=== PATIENT | male | born 1930 | race Caucasian/White ===

== ENCOUNTER → 2018-07-26 | Outpatient (CLI) | payer OTHER ==
[~2018-07-26] MED LIST: BUPIVACAINE MPF 0.25% 10 ML VIAL. ONE; LIDOCAINE 1% PF 30 ML VIAL. ONE; methylPREDNISolone ACETATE 40 MG/ML VIAL. ONE
== END | disposition home or self-care (01) ==
LOC: SURG 08:31
PROVIDERS: ATTEND Anesthesiology
DX: M46.1 Sacroiliitis, not elsewhere classified (principal); M47.817 Spondylosis without myelopathy or radiculopathy, lumbosacral region; I10 Essential (primary) hypertension; E11.9 Type 2 diabetes mellitus without complications; Z87.01 Personal history of pneumonia (recurrent); Z95.0 Presence of cardiac pacemaker; Z88.8 Allergy status to other drugs, medicaments and biological substances; Z87.891 Personal history of nicotine dependence; Z79.82 Long term (current) use of aspirin; Z79.899 Other long term (current) drug therapy; Z79.4 Long term (current) use of insulin; Z90.49 Acquired absence of other specified parts of digestive tract; Z91.013 Allergy to seafood
CPT/HCPCS: 27096; J1030; J2001; J3490

== ENCOUNTER → 2018-08-23 | Outpatient (CLI) | payer OTHER ==
[~2018-08-23] MED LIST changes: +0.9 % SODIUM CHLORIDE 10 ML VIAL ONE; +DEXAMETHASONE SOD PHOS 10 MG/ML VIAL ONE; -methylPREDNISolone ACETATE 40 MG/ML VIAL. ONE
== END | disposition home or self-care (01) ==
LOC: SURG 11:00
PROVIDERS: ATTEND Anesthesiology
DX: M54.16 Radiculopathy, lumbar region (principal); I10 Essential (primary) hypertension; E11.9 Type 2 diabetes mellitus without complications; Z87.01 Personal history of pneumonia (recurrent); Z95.0 Presence of cardiac pacemaker; Z90.49 Acquired absence of other specified parts of digestive tract; Z95.5 Presence of coronary angioplasty implant and graft; Z91.013 Allergy to seafood; Z88.8 Allergy status to other drugs, medicaments and biological substances; Z79.82 Long term (current) use of aspirin; Z79.4 Long term (current) use of insulin
CPT/HCPCS: 62323; J1100; J2001; J3490

== ENCOUNTER → 2018-08-24 | Outpatient (CLI) | payer OTHER ==
--- NOTE | 2018-08-25 09:03 | RAD ---
CT of the lumbar spine without contrast, 08/24/2018: HISTORY: Spinal stenosis, low back pain Noncontrast scans were obtained with multiplanar reconstructions produced. The lumbar vertebral heights are well-maintained. No fracture or destructive bony lesion is seen. There are vacuum disc phenomena throughout the lumbar spine with moderate scattered marginal spurring. There are degenerative changes involving multiple facet joints bilaterally, most severe at the L4-5 level. There are scattered collections of gas in the spinal canal which appear to lie in the epidural space. There are also scattered collections of gas in the soft tissues posteriorly. Has there been a recent intervention such as an epidural injection? At L1-2 there is mild posterior disc bulging and marginal spurring. The central spinal canal and neural foramina are well-maintained. At L2-3 there is moderate broad-based posterior disc bulging, greatest laterally on the left. There is mild posterior ligamentous thickening related to facet joint arthropathy. The combination of findings is causing mild central spinal stenosis with the thecal sac measuring 8 mm in AP diameter at the midline, as well as inferior foraminal narrowing bilaterally. At L3-4 there is moderate broad-based posterior disc bulging. There is mild posterior ligamentous thickening related to moderate facet joint arthropathy with mild associated narrowing of the central spinal canal in a triangular configuration. At L4-5 there is extensive hypertrophic degenerative change involving the facet joints with a mild associated anterolisthesis. There is associated posterior ligamentous thickening. There is mild broad-based posterior disc bulging. The combination of findings is causing moderate central spinal stenosis in a triangular configuration as well as moderate left and mild right foraminal encroachment. At L5-S1 there are moderate degenerative changes involving the facet joints with posterior ligamentous thickening. There is moderate broad-based posterior disc protrusion. This is causing considerable foraminal encroachment, worse on the right. The degree of central canal narrowing is difficult to clearly delineate in the presence of these epidural gas collections, however, there appears to be mild to moderate associated central spinal stenosis. Incidental findings include the presence of moderate aortoiliac calcific plaquing. There is a small hiatal hernia. There is bilateral renal cortical scarring. A nonobstructing calculus is identified in the left kidney. IMPRESSION: 1. Moderate multilevel degenerative change with mild to moderate central spinal stenosis at several levels as described above. 2. Mild anterolisthesis at L4-5 due to severe facet joint arthropathy 3. Moderate to severe foraminal encroachment at L5-S1, worse on the right. 4. Epidural and posterior paraspinal gas collections suggesting a recent spinal intervention. PQRS Compliance Statement: One or more of the following individualized dose reduction techniques were utilized for this examination: 1. Automated exposure control 2. Adjustment of the mA and/or kV according to patient size 3. Use of iterative reconstruction technique Electronically signed by: Chandrakant Metcalf MD (08/25/2018 8:59 AM) [facility]
== END | disposition home or self-care (01) ==
LOC: CT 09:49
PROVIDERS: ATTEND Anesthesiology
DX: M48.061 Spinal stenosis, lumbar region without neurogenic claudication (principal); M12.88 Other specific arthropathies, not elsewhere classified, other specified site; M43.16 Spondylolisthesis, lumbar region; M51.26 Other intervertebral disc displacement, lumbar region; K44.9 Diaphragmatic hernia without obstruction or gangrene; N20.0 Calculus of kidney
CPT/HCPCS: 72131

== ENCOUNTER → 2018-09-06 | Outpatient (CLI) | payer OTHER | END | disposition home or self-care (01) | LOC: SURG 11:55 | PROVIDERS: ATTEND Anesthesiology | DX: Z09 Encounter for follow-up examination after completed treatment for conditions other than malignant neoplasm (principal); M46.1 Sacroiliitis, not elsewhere classified; M47.26 Other spondylosis with radiculopathy, lumbar region; G89.29 Other chronic pain; I10 Essential (primary) hypertension; I25.10 Atherosclerotic heart disease of native coronary artery without angina pectoris; E11.9 Type 2 diabetes mellitus without complications; Z95.0 Presence of cardiac pacemaker; Z90.49 Acquired absence of other specified parts of digestive tract; Z87.891 Personal history of nicotine dependence; Z79.82 Long term (current) use of aspirin; Z79.4 Long term (current) use of insulin | CPT/HCPCS: 99214 ==